=== PATIENT | female | born 1935 | race Caucasian/White ===

== ENCOUNTER 2024-11-24 20:05 | Emergency (ER) | payer MEDICARE, SELFPAY ==
[2024-11-24] VITALS (7 sets, daily range): BP systolic 130–135; BP diastolic 68–74; PULSE 78–101; RESP 14–20; TEMP 36.8; O2SAT 95–99; BMI 37.1
--- NOTE | 2024-11-24 20:09 | XRR_ITS ---
PROCEDURE INFORMATION: Exam: XR Chest Exam date and time: 11/24/2024 8:47 PM Age: 89 years old Clinical indication: Injury or trauma; Fall; Blunt trauma (contusions or hematomas); Additional info: Weakness TECHNIQUE: Imaging protocol: Radiologic exam of the chest. Views: 1 view. COMPARISON: CT cervical spin wo con* [id number] 11/24/2024 8:34 PM FINDINGS: Lungs: There are subtle increased interstitial opacities in the lower kiah thoraces mild indistinctness of the pulmonary, findings that may represent mild pulmonary edema. Additionally, some linear opacities are seen predominantly in the left lung base likely representing atelectasis. Pleural spaces: Unremarkable. No pleural effusion. No pneumothorax. Heart/Mediastinum: Unremarkable. No cardiomegaly. Vasculature: There is mild uncoiling of the thoracic aorta. Bones/joints: Unremarkable. XR/XR chest 1V portable [id number] IMPRESSION: 1. Subtle increased interstitial opacities the lower kiah thoraces could represent mild pulmonary edema. 2. Linear opacities in the left lung base suggests atelectasis.
--- NOTE | 2024-11-24 20:09 | CTR_ITS ---
PROCEDURE INFORMATION: Exam: CT Head Without Contrast Exam date and time: 11/24/2024 8:31 PM Age: 89 years old Clinical indication: Injury or trauma; Fall; Blunt trauma (contusions or hematomas); Additional info: Fall, head injury TECHNIQUE: Imaging protocol: Computed tomography of the head without contrast. Radiation optimization: All CT scans at this facility use at least one of these dose optimization techniques: automated exposure control; mA and/or kV adjustment per patient size (includes targeted exams where dose is matched to clinical indication); or iterative reconstruction. COMPARISON: No relevant prior studies available. RADIATION DOSE METRICS: Total DLP (mGy-cm): 1240.58 FINDINGS: Brain: No acute intracranial hemorrhage. Periventricular and subcortical white matter hypodensities likely represent chronic small vessel ischemic changes. Cerebral ventricles: Moderate generalized cortical volume loss with prominence of the ventricles and cortical sulci. Paranasal sinuses: Chronic appearing right maxillary sinus disease with prior sinus surgery. Mastoid air cells: Visualized mastoid air cells are well aerated. Orbital cavities: Bilateral lens replacements. Bones: Unremarkable. No acute fracture. Soft tissues: Small left periorbital hematoma. CT/CT head wo con* [id number] IMPRESSION: 1. No acute intracranial findings. 2. Small left periorbital hematoma. 3. Chronic/age-related changes as above.
--- NOTE | 2024-11-24 20:14 | ECG_ITS ---
[email or web address] Test Date: 2024-11-24 Pat Name: Cherelle Flood Department: Room: Gender: Female Audioprosthologist: : 1935 Requested By: Marine Mohamud Order Number: [id number] Richard MD: FLORA RODRIGUEZ Measurements Intervals [place] Rate: 82 P: 57 IA: 182 QRS: -18 QRSD: 113 T: 37 QT: 387 QTc: 454 Interpretive Statements SINUS RHYTHM LOW QRS VOLTAGE IN PRECORDIAL LEADS [QRS DEFLECTION < 1.0 mV IN CHEST LEADS] INCOMPLETE RIGHT BUNDLE BRANCH BLOCK [90+ ms QRS DURATION, TERMINAL R IN V1/V2, 40+ ms S IN I/aVL/V4/V5/V6] POSSIBLE ANTEROLATERAL MYOCARDIAL INFARCTION , OF INDETERMINATE AGE [30 ms Q WAVE IN I/aVL/V3-V6] Compared to ECG 03/03/2017 14:37:34 Low QRS voltage now present Incomplete right bundle-branch block now present Myocardial infarct finding still present Electronically Signed On 11-25-2024 18:16:48 CDT by FLORA RODRIGUEZ [email or web address]
--- NOTE | 2024-11-24 20:15 | ED_ITS ---
Documented by User: Bindu Sorenson MD 11/25/24 18:04 HPI - Fall 2 General: Chief Complaint: Fall Stated Complaint: FALL Time Seen by Provider: 11/24/24 20:12 History of Present Illness: 89-year-old woman who presents emergency room from home after having a fall. Apparently she had been somewhat confused and feeling funny all day. She hit her head and has some bleeding from a laceration to her left buddhism area. No known loss of consciousness. No focal motor deficits. No chest pain. No abdominal pain. She has no extremity injuries. He states she just has seemed off all day and slightly confused. She is alert and oriented here. Related Data Previous Rx's ?Medication ?Instructions ?Recorded cefdinir 300 mg capsule 300 mg PO BID 10 days #20 ca ps 11/24/24 Allergies Allergy/AdvReac Type Severity Reaction Status Date / Time No Known Allergies Allergy Verified 11/24/24 20:51 Review of Systems 2 Narrative: Constitutional symptoms: Negative except as documented in HPI. Skin symptoms: Negative except as documented in HPI. Eye symptoms: Negative except as documented in HPI. ENMT symptoms: Negative except as documented in HPI. Respiratory symptoms: Negative except as documented in HPI. Cardiovascular symptoms: Negative except as documented in HPI. Gastrointestinal symptoms: Negative except as documented in HPI. Genitourinary symptoms: Negative except as documented in HPI. Musculoskeletal symptoms: Negative except as documented in HPI. Neurologic symptoms: Negative except as documented in HPI. Psychiatric symptoms: Negative except as documented in HPI. Endocrine symptoms: Negative except as documented in HPI. Physical Exam 2 Narrative: EXAM NARRATIVE: General: Alert, no acute distress. Skin: Warm, dry. Head: Normocephalic, atraumatic. Laceration to the left side of the buddhism area. Neck: Supple, trachea midline. Eye: Extraocular movements are intact. Ears, nose, mouth and throat: mucosa moist. Cardiovascular: Regular, Normal peripheral perfusion. Respiratory: Lungs are clear to auscultation, respirations are non-labored, breath sounds are equal, Symmetrical chest wall expansion. Gastrointestinal: Soft, Nontender, Non distended Musculoskeletal: Normal ROM, no deformity. Neurological: Alert and oriented, No focal neurological deficit observed. Psychiatric: Cooperative, appropriate mood & affect. HENMT: FACE & SINUS IMAGES: 1. small laceration; periorbital ecchymosis without bony tenderness; normal EOMs Course 2 Vital Signs: Vital signs: Vital Signs Temperature 98.3 F 11/24/24 20:37 Pulse Rate 80 11/24/24 22:46 Respiratory Rate 16 11/24/24 22:30 Blood Pressure 130/68 11/24/24 22:46 Pulse Oximetry 95 11/24/24 22:46 Oxygen Delivery Me thod Room Air 11/24/24 20:51 MDM - Fall Medical Decision Making Medical decision making: Differential diagnosis for patient presenting with generalized weakness including but not limited to and based on the above HPI, review of systems and physical exam: Sepsis. Dehydration. Renal failure. Electrolyte abnormalities. Anemia. Congestive heart failure. Hypotension. Coronary syndrome. Hepatitis. Cirrhosis. Infections such as pneumonia, urinary tract infection, Tick bourne illness, Cellulitis, Viral infections including influenza and Covid-19. I assumed care from Dr. Sorenson. Patient is a very nice 89-year-old female who is here with family following a fall that occurred prior to arrival. Family felt like she has been a little weaker than normal. Patient is alert and oriented at time of arrival. No focal neurologic deficits. Vital signs are stable. She had a small laceration involving her left temporal region that was repaired as documented. Tetanus was updated. Blood work overall is nonactionable. Mild white count of 14.3. She is mildly anemic with a hemoglobin of 9.7 with no previous comparisons. She has no history of hematemesis or black or tarry stools. She is not on anticoagulation. UA with evidence of acute cystitis with a cloudy appearance, positive blood, positive nitrates, 2+ leukocyte esterase, greater than 100 WBCs, and 4+ bacteria. Patient was given IM Rocephin prior to discharge will be placed on cefdinir at home. Patient was ambulatory here without difficulty or assistance. Family feels comfortable taking her home. Return to ED precautions given. Lab Data 11/24/24 21:18 11/24/24 21:18 Radiology Impressions Chest X-Ray 11/24/24 20:09 IMPRESSION: 1. Subtle increased interstitial opacities the lower kiah thoraces could represent mild pulmonary edema. 2. Linear opacities in the left lung base suggests atelectasis. Head CT 11/24/24 20:09 IMPRESSION: 1. No acute intracranial findings. 2. Small left periorbital hematoma. 3. Chronic/age-related changes as above. Cervical Spine CT 11/24/24 20:15 IMPRESSION: No acute findings. Laboratory Results WBC 14.34 10^3/uL (3.29-11.43) H 11/24/24 21:18 RBC 3.36 10^6/uL (3.85-5.65) L 11/24/24 21:18 Hgb 9.70 g/dL (11.27-16.99) L 11/24/24 21:18 Hct 32.8 % (36-47) L 11/24/24 21:18 MCV 97.6 fl (85-98) 11/24/24 21:18 MCH 28.9 pg (27-33) 11/24/24 21:18 MCHC 29.6 g/dL (30-55) L 11/24/24 21:18 RDW 14.4 % (12.1-15.1) 11/24/24 21:18 Plt Count 302 10^3/cmm (157-399) 11/24/24 21:18 MPV 9.0 fL (7.4-10.4) 11/24/24 21:18 Neut % (Auto) 87.0 % 11/24/24 21:18 Lymph % (Auto) 5.3 % 11/24/24 21:18 [place] % (Auto) 6.6 % 11/24/24:18 Eos % (Auto) 0.1 % 11/24/24:18 Baso % (Auto) 0.6 % 11/24/24:18 Neut # (Auto) 12.49 10^3/uL (1.8-7.7) H 11/24/24 21:18 Lymph # (Auto) 0.8 10^3/uL (0.8-4.8) 11/24/24 21:18 [place] # (Auto) 0.9 10^3/uL (0.2-0.9) 11/24/24:18 Eos # (Auto) 0.0 10^3/uL (0.0-0.8) 11/24/24 21:18 Baso # (Auto) 0.1 10^3/uL (0.0-0.1) 11/24/24 21:18 Nucleated RBC % (auto) 0 % 11/24/24 21:18 Nucleated RBCs # 0.0 /100WBC 11/24/24 21:18 Sodium 134 mmol/L (136-145) L 11/24/24 21:18 Potassium 4.1 mmol/L (3.5-5.1) 11/24/24 21:18 Chloride 98 mmol/L (98-107) 11/24/24 21:18 Carbon Dioxide 22 mmol/L (22-29) 11/24/24 21:18 Anion Gap 18.1 (5-19) 11/24/24 21:18 BUN 19 mg/dL (8-23) 11/24/24 21:18 Creatinine 1.4 mg/dL (0.5-0.9) H 11/24/24 21:18 GFR Calculation Not Reportable 11/24/24 21:18 Glucose 137 mg/dL (65-115) H 11/24/24 21:18 Calculated Osmolality 282 mOsm/kg (285-295) L 11/24/24 21:18 Lactic Acid 1.8 mmol/L (0.5-2.2) 11/24/24 21:18 Calcium 9.2 mg/dL (8.5-10.5) 11/24/24 21:18 Total Bilirubin 1.0 mg/dL (0.15-1.2) 11/24/24 21:18 AST 16 U/L (0-32) 11/24/24 21:18 ALT 10 U/L (0-33) 11/24/24 21:18 Alkaline Phosphatase 72 U/L (35-105) 11/24/24 21:18 Total Protein 7.2 g/dL (6.6-8.7) 11/24/24 21:18 Albumin 3.8 g/dL (3.5-5.2) 11/24/24 21:18 Globulin 3.4 g/dL (1.3-4.6) 11/24/24 21:18 Urine Color Yellow (Yellow) 11/24/24 20:21 Urine Appearance Cloudy (CLEAR) A 11/24/24 20:21 Urine pH 5.0 (5-7) 11/24/24 20:21 Ur Specific Ferrum 1.016 (1.005-1.030) 11/24/24 20:21 Urine Protein 1+ (Negative) A 11/24/24 20:21 Urine Glucose (UA) Negative (Normal) 11/24/24 20:21 Urine Ketones Negative (Negative) 11/24/24 20:21 Urine Blood 1+ (Negative) A 11/24/24 20:21 Urine Nitrate Positive (Negative) A 11/24/24 20:21 Urine Bilirubin Negative (Negative) 11/24/24 20:21 Urine Urobilinogen 0.2 mg/dL (Negative) 11/24/24 20:21 Ur Leukocyte Esterase 2+ (Negative) A 11/24/24 20:21 Urine RBC 3-5 /hpf (0-2) 11/24/24 20:21 Urine WBC >100 /hpf (0-5) H 11/24/24 20:21 Ur Squamous Epith Cells 10-15 /hpf (0-5) H 11/24/24 20:21 Amorphous Sediment Not Reportable 11/24/24 20:21 Urine Bacteria 4+ /hpf (NONE) H 11/24/24 20:21 Hyaline Casts 4.52 /lpf 11/24/24 20:21 Influenza A (PCR) Negative (Negative) 11/24/24 21:03 Influenza Type B (PCR) Negative (Negative) 11/24/24 21:03 RSV (PCR) Negative (Negative) 11/24/24 21:03 SARS-CoV-2 (PCR) Negative (Negative) 11/24/24 21:03 Discharge Plan Discharge Patient Disposition: Home Clinical Impression: Acute UTI Fall Qualifiers: Encounter type: initial encounter Qualified Code(s): W19.XXXA - Unspecified fall, initial encounter Facial laceration Qualifiers: Encounter type: initial encounter Qualified Code(s): S01.81XA - Laceration without foreign body of other part of head, initial encounter Condition: Stable Prescriptions: New cefdinir 300 mg capsule 300 mg PO BID 10 Days Qty: 20 0RF Discharge Orders: Discharge ED (Routine); Ordered 11/24/24 Ordered By: Marine Mohamud Referrals: Junior Pradhan [Primary Care Provider] - Patient Instructions: Facial Laceration (ED), Urinary Tract Infection in Older Adults (ED) Activity Restrictions/Additional Instructions: Keep wound/laceration clean with warm soap and water twice daily. Monitor for signs of infection such as redness, swelling, increased pain, or drainage. Please seek medical re-evaluation if these occur. If you received sutures today these will need to be removed (unless you were told by the provider that they are absorbable). The provider should have discussed with you the length of time until removal-7 DAYS. Fill your antibiotics tomorrow and start them immediately. She needs to seek medical reevaluation for worsening weakness, repetitive episodes of vomiting, flank pain, fevers, inability to hold down or tolerate her antibiotics, repeated falls, inability to care for herself, or any other concerns you may have. Print Language: Polish Sign Out Sign Out Data: Patient Sign Out occurred on 11/24/24 at 20:34. Patient's care was discussed, and care was transferred from Bindu Sorenson MD to MARIANN Meza. Coding Level of Care Code ED Automatic Print Developer for Chg Fwd Documented by User: MARIANN Meza 11/24/24 22:24 HPI - Fall 2 General: Chief Complaint: Fall Stated Complaint: FALL Time Seen by Provider: 11/24/24 20:12 Related Data Previous Rx's ?Medication ?Instructions ?Recorded cefdinir 300 mg capsule 300 mg PO BID 10 days #20 ca ps 11/24/24 Allergies Allergy/AdvReac Type Severity Reaction Status Date / Time No Known Allergies Allergy Verified 11/24/24 20:51 Physical Exam 2 HENMT: COMMON NORMALS: Normal external nose present FACE & SINUS: e cchymosis (L periorbital ecchymosis); no sinus tenderness FACE & SINUS IMAGES: 1. small laceration; periorbital ecchymosis without bony tenderness; normal EOMs NOSE: Normal external nose present Extremity: LEFT LOWER EXTREMITY: Yes knee joint (very scant abrasion anteriorly; full ROM) OTHER: can move bilateral hips easily without pain Neuro: COMMON NORMALS: moves all extremities, no focal motor deficits and no sensory deficits noted Procedures Laceration Laceration 1: Site: face Side (If applicable): left Size (cm): 1.0 Description: linear Depth: simple, single layer Local Anesthetic: lidocaine 1% and with epi Amount of anesthesia used (mL): 1.0 Pre-repair: wound explored and irrigated extensively Skin layer closed with: nylon Size (cm): 5-0 Number of sutures: 2 Technique: simple, interrupted Course 2 Vital Signs: Vital signs: Vital Signs Temperature 98.3 F 11/24/24 20:37 Pulse Rate 80 11/24/24 22:46 Respiratory Rate 16 11/24/24 22:30 Blood Pressure 130/68 11/24/24 22:46 Pulse Oximetry 95 11/24/24 22:46 Oxygen Delivery Me thod Room Air 11/24/24 20:51 MDM - Fall Medical Decision Making Medical decision making: Differential diagnosis for patient presenting with generalized weakness including but not limited to and based on the above HPI, review of systems and physical exam: Sepsis. Dehydration. Renal failure. Electrolyte abnormalities. Anemia. Congestive heart failure. Hypotension. Coronary syndrome. Hepatitis. Cirrhosis. Infections such as pneumonia, urinary tract infection, Tick bourne illness, Cellulitis, Viral infections including influenza and Covid-19. Workup: labwork and lab/exam driven imaging ordered to evaluate, rule in and rule out above pathologies. Lab Review: Laboratory results were reviewed and interpreted by myself the emergency room physician. I reviewed the patient's medical record. Reexamination: I assumed care from Dr. Sorenson. Patient is a very nice 89-year-old female who is here with family following a fall that occurred prior to arrival. Family felt like she has been a little weaker than normal. Patient is alert and oriented at time of arrival. No focal neurologic deficits. Vital signs are stable. She had a small laceration involving her left temporal region that was repaired as documented. Tetanus was updated. Blood work overall is nonactionable. Mild white count of 14.3. She is mildly anemic with a hemoglobin of 9.7 with no previous comparisons. She has no history of hematemesis or black or tarry stools. She is not on anticoagulation. UA with evidence of acute cystitis with a cloudy appearance, positive blood, positive nitrates, 2+ leukocyte esterase, greater than 100 WBCs, and 4+ bacteria. Patient was given IM Rocephin prior to discharge will be placed on cefdinir at home. Patient was ambulatory here without difficulty or assistance. Family feels comfortable taking her home. Return to ED precautions given. Medical Records I reviewed the patient's medical records. Lab Data I reviewed the patient's lab results. 11/24/24 21:18 11/24/24 21:18 Radiology Impressions Chest X-Ray 11/24/24 20:09 IMPRESSION: 1. Subtle increased interstitial opacities the lower kiah thoraces could represent mild pulmonary edema. 2. Linear opacities in the left lung base suggests atelectasis. Head CT 11/24/24 20:09 IMPRESSION: 1. No acute intracranial findings. 2. Small left periorbital hematoma. 3. Chronic/age-related changes as above. Cervical Spine CT 11/24/24 20:15 IMPRESSION: No acute findings. Laboratory Results WBC 14.34 10^3/uL (3.29-11.43) H 11/24/24 21:18 RBC 3.36 10^6/uL (3.85-5.65) L 11/24/24 21:18 Hgb 9.70 g/dL (11.27-16.99) L 11/24/24 21:18 Hct 32.8 % (36-47) L 11/24/24 21:18 MCV 97.6 fl (85-98) 11/24/24 21:18 MCH 28.9 pg (27-33) 11/24/24 21:18 MCHC 29.6 g/dL (30-55) L 11/24/24 21:18 RDW 14.4 % (12.1-15.1) 11/24/24 21:18 Plt Count 302 10^3/cmm (157-399) 11/24/24 21:18 MPV 9.0 fL (7.4-10.4) 11/24/24 21:18 Neut % (Auto) 87.0 % 11/24/24 21:18 Lymph % (Auto) 5.3 % 11/24/24 21:18 [place] % (Auto) 6.6 % 11/24/24 21:18 Eos % (Auto) 0.1 % 11/24/24 21:18 Baso % (Auto) 0.6 % 11/24/24 21:18 Neut # (Auto) 12.49 10^3/uL (1.8-7.7) H 11/24/24 21:18 Lymph # (Auto) 0.8 10^3/uL (0.8-4.8) 11/24/24 21:18 [place] # (Auto) 0.9 10^3/uL (0.2-0.9) 11/24/24 21:18 Eos # (Auto) 0.0 10^3/uL (0.0-0.8) 11/24/24 21:18 Baso # (Auto) 0.1 10^3/uL (0.0-0.1) 11/24/24 21:18 Nucleated RBC % (auto) 0 % 11/24/24 21:18 Nucleated RBCs # 0.0 /100WBC 11/24/24 21:18 Sodium 134 mmol/L (136-145) L 11/24/24 21:18 Potassium 4.1 mmol/L (3.5-5.1) 11/24/24 21:18 Chloride 98 mmol/L (98-107) 11/24/24 21:18 Carbon Dioxide 22 mmol/L (22-29) 11/24/24 21:18 Anion Gap 18.1 (5-19) 11/24/24 21:18 BUN 19 mg/dL (8-23) 11/24/24 21:18 Creatinine 1.4 mg/dL (0.5-0.9) H 11/24/24 21:18 GFR Calculation Not Reportable 11/24/24 21:18 Glucose 137 mg/dL (65-115) H 11/24/24 21:18 Calculated Osmolality 282 mOsm/kg (285-295) L 11/24/24 21:18 Lactic Acid 1.8 mmol/L (0.5-2.2) 11/24/24 21:18 Calcium 9.2 mg/dL (8.5-10.5) 11/24/24 21:18 Total Bilirubin 1.0 mg/dL (0.15-1.2) 11/24/24 21:18 AST 16 U/L (0-32) 11/24/24 21:18 ALT 10 U/L (0-33) 11/24/24 21:18 Alkaline Phosphatase 72 U/L (35-105) 11/24/24 21:18 Total Protein 7.2 g/dL (6.6-8.7) 11/24/24 21:18 Albumin 3.8 g/dL (3.5-5.2) 11/24/24 21:18 Globulin 3.4 g/dL (1.3-4.6) 11/24/24 21:18 Urine Color Yellow (Yellow) 11/24/24 20:21 Urine Appearance Cloudy (CLEAR) A 11/24/24 20:21 Urine pH 5.0 (5-7) 11/24/24 20:21 Ur Specific [place] 1.016 (1.005-1.030) 11/24/24 20:21 Urine Protein 1+ (Negative) A 11/24/24 20:21 Urine Glucose (UA) Negative (Normal) 11/24/24 20: Urine Ketones Negative (Negative) 11/24/24 20: Urine Blood 1+ (Negative) A 11/24/24 20: Urine Nitrate Positive (Negative) A 11/24/24 20: Urine Bilirubin Negative (Negative) 11/24/24 20:21 Urine Urobilinogen 0.2 mg/dL (Negative) 11/24/24 20:21 Ur Leukocyte Esterase 2+ (Negative) A 11/24/24 20:21 Urine RBC 3-5 /hpf (0-2) 11/24/24 20:21 Urine WBC >100 /hpf (0-5) H 11/24/24 20:21 Ur Squamous Epith Cells 10-15 /hpf (0-5) H 11/24/24 20:21 Amorphous Sediment Not Reportable 11/24/24 20:21 Urine Bacteria 4+ /hpf (NONE) H 11/24/24 20:21 Hyaline Casts 4.52 /lpf 11/24/24 20:21 Influenza A (PCR) Negative (Negative) 11/24/24 21:03 Influenza Type B (PCR) Negative (Negative) 11/24/24 21:03 RSV (PCR) Negative (Negative) 11/24/24 21:03 SARS-CoV-2 (PCR) Negative (Negative) 11/24/24 21:03 All radiology interpretation(s) finalized by discharge Discharge Plan Discharge Patient Disposition: Home Clinical Impression: Acute UTI Fall Qualifiers: Encounter type: initial encounter Qualified Code(s): W19.XXXA - Unspecified fall, initial encounter Facial laceration Qualifiers: Encounter type: initial encounter Qualified Code(s): S01.81XA - Laceration without foreign body of other part of head, initial encounter Condition: Stable Prescriptions: New cefdinir 300 mg capsule 300 mg PO BID 10 Days Qty: 20 0RF Discharge Orders: Discharge ED (Routine); Ordered 11/24/24 Ordered By: Marine Mohamud Referrals: Junior Pradhan [Primary Care Provider] - Patient Instructions: Facial Laceration (ED), Urinary Tract Infection in Older Adults (ED) Activity Restrictions/Additional Instructions: Keep wound/laceration clean with warm soap and water twice daily. Monitor for signs of infection such as redness, swelling, increased pain, or drainage. Please seek medical re-evaluation if these occur. If you received sutures today these will need to be removed (unless you were told by the provider that they are absorbable). The provider should have discussed with you the length of time until removal-7 DAYS. Fill your antibiotics tomorrow and start them immediately. She needs to seek medical reevaluation for worsening weakness, repetitive episodes of vomiting, flank pain, fevers, inability to hold down or tolerate her antibiotics, repeated falls, inability to care for herself, or any other concerns you may have. Print Language: Polish Sign Out Sign Out Data: Patient Sign Out occurred on 11/24/24 at 20:34. Patient's care was discussed, and care was transferred from Bindu Sorenson MD to MARIANN Meza. Coding Level of Care Code ED Automatic Print Developer for Nisha Meza
--- NOTE | 2024-11-24 20:15 | CTR_ITS ---
PROCEDURE INFORMATION: Exam: CT Cervical Spine Without Contrast Exam date and time: 11/24/2024 8:34 PM Age: 89 years old Clinical indication: Injury or trauma; Fall; Blunt trauma; Additional info: Fall, neck pain TECHNIQUE: Imaging protocol: Computed tomography of the cervical spine without contrast. Radiation optimization: All CT scans at this facility use at least one of these dose optimization techniques: automated exposure control; mA and/or kV adjustment per patient size (includes targeted exams where dose is matched to clinical indication); or iterative reconstruction. COMPARISON: CT head wo con* [id number] 11/24/2024 8:31 PM RADIATION DOSE METRICS: Total DLP (mGy-cm): 231.87 FINDINGS: Bones: No acute fracture. Normal alignment. Moderate to advanced degenerative disc disease at C5-C6 and C6-C7. Multilevel bilateral facet and uncovertebral hypertrophy with areas of mild neural foraminal narrowing. No significant disc bulge or herniation. No severe spinal canal stenosis. Lungs: Lung apices are normal. Soft tissues: Unremarkable. CT/CT cervical spin wo con* [id number] IMPRESSION: No acute findings.
[2024-11-24 20:48] LABS: Bilirubin Urine Negative (Negative); Blood Urine 1+ (Negative); Glucose Urine UA Negative (Normal); Ketones Urine Negative (Negative); Leukocyte Esterase Urine 2+ (Negative); Nitrate Urine Positive (Negative); Protein Urine 1+ (Negative); Specific Gravity, Urine 1.016 (1.005-1.030); Urine Appearance Cloudy (CLEAR); Urine Color Yellow (Yellow); Urobilinogen Urine 0.2 mg/dL (Negative)
[2024-11-24 20:52] LABS: Bacteria Urine 4+ /hpf; Hyaline Casts Urine 4.52 /lpf; Universal Test for UA Present (0); WBC Urine >100 /hpf (0-5)
[2024-11-24] MEDS: ondansetron 2 mg/ML SDV 2 mL 4 MG IVP (20:52)
[2024-11-24 21:14] LABS: Add Urine Culture? No
[2024-11-24 21:24] LABS: Basophils # 0.1 10^3/uL (0.0-0.1); Basophils % 0.6 %; Eosinophils % 0.1 %; Hematocrit 32.8 % (36-47); Lymphocytes # 0.8 10^3/uL (0.8-4.8); Lymphocytes % 5.3 %; Mean Corpuscular HGB Conc 29.6 g/dL (30-55); Mean Corpuscular Hemoglobin 28.9 pg (27-33); Mean Corpuscular Volume 97.6 fl (85-98); Monocytes # 0.9 10^3/uL (0.2-0.9); Monocytes % 6.6 %; Neutrophils # 12.49 10^3/uL (1.8-7.7); Nucleated Red Blood Cells % 0 %; Platelet Count 302 10^3/cmm (157-399); Red Blood Count 3.36 10^6/uL (3.85-5.65); Red Cell Distribution Width 14.4 % (12.1-15.1); White Blood Count 14.34 10^3/uL (3.29-11.43)
[2024-11-24 21:44] LABS: Alanine Aminotransferase 10 U/L (0-33); Albumin Level 3.8 g/dL (3.5-5.2); Alkaline Phosphatase 72 U/L (35-105); Anion Gap 18.1 (5-19); Aspartate Amino Transferase 16 U/L (0-32); Blood Urea Nitrogen 19 mg/dL (8-23); Calcium 9.2 mg/dL (8.5-10.5); Carbon Dioxide 22 mmol/L (22-29); Chloride 98 mmol/L (98-107); Creatinine Clr Calc Pharmacy 34.5519; Globulin 3.4 g/dL (1.3-4.6); Glucose 137 mg/dL (65-115); Osmolality Calculated 282 mOsm/kg (285-295); Potassium 4.1 mmol/L (3.5-5.1); Sodium 134 mmol/L (136-145); Total Protein 7.2 g/dL (6.6-8.7)
[2024-11-24 21:45] LABS: Lactic Sepsis W/Reflex 1.8 mmol/L (0.5-2.2)
[2024-11-24 21:54] LABS: Influenza A NEGATIVE (Negative); Influenza B NEGATIVE (Negative); Respiratory Syncytial Virus Ce NEGATIVE (Negative); SARS-CoV-2 PCR NEGATIVE (Negative)
[2024-11-24] MEDS: tetanus-dipt-pertussis 0.5 mL SDV IM (22:10)
[2024-11-24] MEDS: cefTRIAXone 1,000 MG in water for injection-sterile 2.1 ML 1 MG IM (22:34)
== END 2024-11-24 22:47 | disposition home or self-care (01) ==
PROVIDERS: Emergency Medicine; Emergency Provider Physician Assistant; PCP Family Medicine
DX: N39.0 Urinary tract infection, site not specified (principal); W19.XXXA Unspecified fall, initial encounter; S01.81XA Laceration without foreign body of other part of head, initial encounter; Z11.52 Encounter for screening for COVID-19
CPT/HCPCS: 12011; 36415; 70450; 71045; 72125; 80053; 81001; 83605; 85025; 87040; 87077; 87086; 87186; 87637; 90471; 90715; 93005; 96372; 96374; 99285; J0696; J2405